=== PATIENT | male | born 1970 | race Caucasian/White ===

== ENCOUNTER → 2017-10-24 | Outpatient (REF) | payer BC ==
[2017-10-24 12:13] LABS: BASO # 0.1 10^3/uL (0.0-0.2); BASO % 0.9 % (0.0-1.0); EOS # 0.3 10^3/uL (0.0-0.50); EOS % 4.7 % (0.0-3.0); HEMATOCRIT 43.2 % (42.0-52.0); HEMOGLOBIN 14.8 g/dl (14.0-18.0); IMMATURE GRANULOCYTE % 0.2 % (0-3.0); LYMPH # 1.3 10^3/uL (1.5-4.5); LYMPH % 23.6 % (24.0-44.0); MEAN CORPUSCULAR HEMOGLOBIN 31.6 pg (27.0-33.0); MEAN CORPUSCULAR HGB CONC 34.3 g/dl (32.0-36.5); MEAN CORPUSCULAR VOLUME 92.3 fl (80.0-96.0); MONO # 0.7 10^3/uL (0.0-0.8); MONO % 13.8 % (0.0-5.0); NEUTROPHILS % 56.8 % (36.0-66.0); PLATELET COUNT, AUTOMATED 191 10^3/uL (150-450); RED BLOOD COUNT 4.68 10^6/uL (4.30-6.10); RED CELL DISTRIBUTION WIDTH 12.9 % (11.5-14.5); WHITE BLOOD COUNT 5.3 10^3/uL (4.0-10.0)
[2017-10-24 12:35] LABS: TESTOSTERONE 363 NG/DL (241-827)
[2017-10-24 12:42] LABS: ALBUMIN 4.5 GM/DL (3.2-5.2); ALKALINE PHOSPHATASE 76 U/L (45-117); ALT/SGPT 40 U/L (12-78); ANION GAP 5 MEQ/L (8-16); AST/SGOT 29 U/L (7-37); BILIRUBIN,TOTAL 0.5 MG/DL (0.2-1.0); BLOOD UREA NITROGEN 14 MG/DL (7-18); CALCIUM LEVEL 8.8 MG/DL (8.5-10.1); CARBON DIOXIDE LEVEL 31 MEQ/L (21-32); CHLORIDE LEVEL 104 MEQ/L (98-107); CHOLESTEROL LEVEL 215 MG/DL (<200); CHOLESTEROL RISK RATIO 2.687 (<5); CREATININE FOR GFR 0.83 MG/DL (0.70-1.30); FREE T4 0.79 NG/DL (0.76-1.46); GLOMERULAR FILTRATION RATE > 60.0 (>60); GLUCOSE, FASTING 109 MG/DL (70-100); HDL CHOLESTEROL 80 MG/DL (>40); LDL CHOLESTEROL 116.4 MG/DL (<100); NON-HDL-C 135 MG/DL; PSA SCREENING 0.77 NG/ML (< 4.0); SODIUM LEVEL 140 MEQ/L (136-145); TOTAL PROTEIN 7.5 GM/DL (6.4-8.2); TRIGLYCERIDES LEVEL 93 MG/DL (<150); URIC ACID 5.5 MG/DL (3.5-7.2)
[2017-10-24 12:43] LABS: MAU/CREAT RATIO 15.3 MCG/MG (0.0-30.0)
[2017-10-25 10:55] LABS: HIV 1&2 SCREEN CENTAUR NEGATIVE (NEGATIVE)
[2017-10-25 13:08] LABS: HEPATITIS C VIRUS ABY INDEX 0.1 INDEX (<0.8)
== END ==
LOC: M SFHCCLAY 08:06
DX: M10.9 Gout, unspecified (principal); I10 Essential (primary) hypertension; R35.0 Frequency of micturition; N52.9 Male erectile dysfunction, unspecified; Z11.4 Encounter for screening for human immunodeficiency virus [HIV]; Z11.59 Encounter for screening for other viral diseases
CPT/HCPCS: 84403

== ENCOUNTER → 2018-10-25 | Outpatient (REF) | payer BC ==
[2018-10-25 11:58] LABS: ALBUMIN 4.1 GM/DL (3.2-5.2); ALT/SGPT 29 U/L (12-78); BILIRUBIN,TOTAL 0.7 MG/DL (0.2-1.0); BLOOD UREA NITROGEN 12 MG/DL (7-18); CALCIUM LEVEL 8.3 MG/DL (8.5-10.1); CARBON DIOXIDE LEVEL 27 MEQ/L (21-32); CHLORIDE LEVEL 103 MEQ/L (98-107); CHOLESTEROL LEVEL 245 MG/DL (<200); CREATININE FOR GFR 0.89 MG/DL (0.70-1.30); GLOMERULAR FILTRATION RATE > 60.0 (>60); GLUCOSE, FASTING 84 MG/DL (70-100); HDL CHOLESTEROL 70 MG/DL (>40); LDL CHOLESTEROL 140 MG/DL (<100); NON-HDL-C 175 MG/DL; POTASSIUM SERUM 4.2 MEQ/L (3.5-5.1); SODIUM LEVEL 138 MEQ/L (136-145); TOTAL PROTEIN 7.2 GM/DL (6.4-8.2); TRIGLYCERIDES LEVEL 175 MG/DL (<150)
== END ==
LOC: M SFHCCLAY 07:58
PROVIDERS: ATTEND Nurse Practitioner Family
DX: Z00.00 Encounter for general adult medical examination without abnormal findings (principal); I10 Essential (primary) hypertension

== ENCOUNTER → 2019-12-25 | Outpatient (REF) | payer BC ==
[2019-12-25 11:39] LABS: BASO % 0.6 % (0.0-1.0); EOS # 0.4 10^3/uL (0.0-0.5); EOS % 7.6 % (0.0-3.0); HEMATOCRIT 40.2 % (42.0-52.0); HEMOGLOBIN 14.5 g/dl (13.5-17.5); LYMPH # 1.4 10^3/uL (1.5-5.0); LYMPH % 29.5 % (24.0-44.0); MEAN CORPUSCULAR HEMOGLOBIN 32.9 pg (27.0-33.0); MEAN CORPUSCULAR HGB CONC 36.1 g/dl (32.0-36.5); MEAN CORPUSCULAR VOLUME 91.2 fl (80.0-96.0); MONO # 0.7 10^3/uL (0.0-0.8); NEUTROPHILS # 2.2 10^3/uL (1.5-8.5); NEUTROPHILS % 46.9 % (36.0-66.0); PLATELET COUNT, AUTOMATED 142 10^3/uL (150-450); RED BLOOD COUNT 4.41 10^6/uL (4.30-6.10); WHITE BLOOD COUNT 4.7 10^3/uL (4.0-10.0)
[2019-12-25 11:57] LABS: ALBUMIN 4.6 GM/DL (3.2-5.2); ALT/SGPT 42 U/L (12-78); BILIRUBIN,TOTAL 0.5 MG/DL (0.2-1.0); BLOOD UREA NITROGEN 13 MG/DL (7-18); CALCIUM LEVEL 9.6 MG/DL (8.5-10.1); CARBON DIOXIDE LEVEL 28 MEQ/L (21-32); CHLORIDE LEVEL 100 MEQ/L (98-107); CHOLESTEROL LEVEL 270 MG/DL (<200); CHOLESTEROL RISK RATIO 4.029 (<5); CREATININE FOR GFR 0.96 MG/DL (0.70-1.30); FREE T4 0.94 NG/DL (0.76-1.46); GLOMERULAR FILTRATION RATE > 60.0 (>60); GLUCOSE, FASTING 96 MG/DL (70-100); HDL CHOLESTEROL 67 MG/DL (>40); LDL CHOLESTEROL 133 MG/DL (<100); NON-HDL-C 203 MG/DL; POTASSIUM SERUM 4.6 MEQ/L (3.5-5.1); SODIUM LEVEL 136 MEQ/L (136-145); TOTAL PROTEIN 7.9 GM/DL (6.4-8.2); TRIGLYCERIDES LEVEL 352 MG/DL (<150); URIC ACID 4.9 MG/DL (3.5-7.2)
== END ==
LOC: M SFHCCLAY 07:57
PROVIDERS: ATTEND Nurse Practitioner Family
DX: I10 Essential (primary) hypertension (principal); M10.9 Gout, unspecified; N52.9 Male erectile dysfunction, unspecified
CPT/HCPCS: 80053; 80061; 84439; 84443; 84550; 85025; G0103

== ENCOUNTER → 2023-09-06 | Outpatient (REF) | payer OTHER ==
[2023-09-06 12:24] LABS: BASO # 0.1 10^3/uL (0.0-0.2); EOS # 0.3 10^3/uL (0.0-0.5); EOS % 5.2 % (0.0-3.0); HEMATOCRIT 40.9 % (42.0-52.0); HEMOGLOBIN 14.2 g/dl (13.5-17.5); LYMPH # 1.6 10^3/uL (1.5-5.0); LYMPH % 31.1 % (24.0-44.0); MEAN CORPUSCULAR HEMOGLOBIN 33.6 pg (27.0-33.0); MEAN CORPUSCULAR HGB CONC 34.7 g/dl (32.0-36.5); MEAN CORPUSCULAR VOLUME 96.9 fl (80.0-96.0); MONO # 0.8 10^3/uL (0.0-0.8); MONO % 14.7 % (2.0-8.0); NEUTROPHILS # 2.5 10^3/uL (1.5-8.5); NEUTROPHILS % 47.8 % (36.0-66.0); PLATELET COUNT, AUTOMATED 196 10^3/uL (150-450); RED BLOOD COUNT 4.22 10^6/uL (4.30-6.10); WHITE BLOOD COUNT 5.2 10^3/uL (4.0-10.0)
[2023-09-06 12:34] LABS: ALBUMIN 4.7 G/DL (3.2-5.2); ALKALINE PHOSPHATASE 71 U/L (46-116); ALT/SGPT 22 U/L (7.0-40); AST/SGOT 28 U/L (<34); BILIRUBIN,TOTAL 0.6 MG/DL (0.3-1.2); BLOOD UREA NITROGEN 11 MG/DL (9-23); CALCIUM LEVEL 9.7 MG/DL (8.5-10.1); CARBON DIOXIDE LEVEL 28 MMOL/L (20-31); CHLORIDE LEVEL 103 MMOL/L (98-107); CHOLESTEROL LEVEL 217 MG/DL (<200); CHOLESTEROL RISK RATIO 2.81 (<5); CREATININE FOR GFR 0.83 MG/DL (0.70-1.30); GLOMERULAR FILTRATION RATE > 60.0 (>56); GLUCOSE, FASTING 93 MG/DL (60-100); HDL CHOLESTEROL 77.1 MG/DL (>40); LDL CHOLESTEROL 115.5 MG/DL (<100); NON-HDL-C 139.9 MG/DL; POTASSIUM SERUM 4.9 MMOL/L (3.5-5.1); SODIUM LEVEL 136 MMOL/L (136-145); TOTAL PROTEIN 7.6 G/DL (5.7-8.2); TRIGLYCERIDES LEVEL 122 MG/DL (<150)
[2023-09-06 12:35] LABS: FREE T4 1.25 NG/DL (0.89-1.76); THYROID STIMULATING HORMONE 0.908 uIU/ML (0.55-4.78)
[2023-09-06 12:38] LABS: URIC ACID 4.8 MG/DL (3.7-9.2)
== END ==
LOC: M SFHCCLAY 07:54
PROVIDERS: ATTEND Nurse Practitioner Family
DX: Z00.00 Encounter for general adult medical examination without abnormal findings (principal); M10.9 Gout, unspecified; I10 Essential (primary) hypertension

== ENCOUNTER → 2024-06-20 | Outpatient (CLI) | payer OTHER | LOC: M CLY 14:46 | PROVIDERS: ATTEND Physician Assistant | DX: R05.1 Acute cough (principal) ==

== ENCOUNTER → 2025-05-02 | Outpatient (REF) | payer OTHER ==
[2025-05-02 18:35] LABS: BASO # 0.0 10^3/uL (0.0-0.2); BASO % 0.3 % (0.0-1.0); EOS # 0.2 10^3/uL (0.0-0.5); EOS % 2.0 % (0.0-3.0); LYMPH # 2.5 10^3/uL (1.5-5.0); LYMPH % 27.4 % (24.0-44.0); MONO # 0.7 10^3/uL (0.0-0.8); MONO % 7.6 % (2.0-8.0); NEUTROPHILS # 5.6 10^3/uL (1.5-8.5); NEUTROPHILS % 62.5 % (36.0-66.0); PLATELET COUNT, AUTOMATED 152 10^3/uL (150-450)
[2025-05-02 18:43] LABS: ALT/SGPT 23 U/L (7.0-40); AST/SGOT 24 U/L (<34); CALCIUM LEVEL 9.2 MG/DL (8.5-10.1); CARBON DIOXIDE LEVEL 24 MMOL/L (20-31); CHLORIDE LEVEL 103 MMOL/L (98-107); CHOLESTEROL LEVEL 253 MG/DL (<200); CHOLESTEROL RISK RATIO 5.21 (<5); CREATININE FOR GFR 0.93 MG/DL (0.70-1.30); FREE T4 1.11 NG/DL (0.89-1.76); GLOMERULAR FILTRATION RATE > 90.0 (>56); NON-HDL-C 204.5 MG/DL; POTASSIUM SERUM 4.0 MMOL/L (3.5-5.1); PSA SCREENING 0.31 NG/ML (< 4.00); SODIUM LEVEL 139 MMOL/L (136-145); TOTAL 25(OH) VITAMIN D 15.4 NG/ML (20.0-100.0); TRIGLYCERIDES LEVEL 1131 MG/DL (<150)
== END ==
LOC: M SFHCCLAY 14:15
PROVIDERS: ATTEND Nurse Practitioner Family
DX: Z00.00 Encounter for general adult medical examination without abnormal findings (principal); I10 Essential (primary) hypertension; M10.9 Gout, unspecified; N52.9 Male erectile dysfunction, unspecified
CPT/HCPCS: 80053; 80061; 82306; 84439; 84443; 85025; G0103

== ENCOUNTER → 2025-05-07 | Outpatient (REF) | payer OTHER ==
[2025-05-07 18:16] LABS: CHOLESTEROL LEVEL 308 MG/DL (<200); CHOLESTEROL RISK RATIO 5.68 (<5); NON-HDL-C 253.8 MG/DL; TRIGLYCERIDES LEVEL 622 MG/DL (<150)
== END ==
LOC: M SFHCCLAY 13:53
PROVIDERS: ATTEND Nurse Practitioner Family
DX: Z00.00 Encounter for general adult medical examination without abnormal findings (principal); I10 Essential (primary) hypertension

== ENCOUNTER 2025-08-20 08:30 | Day surgery (SDC) | payer OTHER ==
[~2025-08-20] VITALS: Ht 190.5 cm; Wt 101.6 kg
[~2025-08-20 08:30] MED LIST: ALLO100T PO; ATOR1TAB21 PO; ERGO500029 PO; LISI40TA10 PO; MULT-90 PO
[2025-08-20] MEDS ORDERED: LIDOCAINE 2% 100 MG/5 ML SDV (FOR ANES.) As Ordered ONE (09:11)
[2025-08-20 09:32] VITALS: TEMP 98.6
[2025-08-20 09:40] VITALS: BP 104/72; O2SAT 97
== END 2025-08-20 10:04 | disposition home or self-care (01) ==
LOC: M OPP 08:30
PROVIDERS: ATTEND Surgery
DX: Z12.11 Encounter for screening for malignant neoplasm of colon (principal); K63.5 Polyp of colon; K64.0 First degree hemorrhoids; Z79.899 Other long term (current) drug therapy